=== PATIENT | female | born 1960 | race Caucasian/White ===

== ENCOUNTER → 2021-01-11 10:35 | Outpatient (CLI) | payer BC, SELFPAY ==
--- NOTE | ~2021-01-11 | MM_ITS ---
EXAMINATION: MM screening michael BI w frank HISTORY: Screening mammogram TECHNIQUE: Craniocaudal and mediolateral oblique 3-D tomosynthesis images were obtained and synthetic 2-D images were generated. CAD analysis was submitted and interpreted. COMPARISON: 06/02/2019 bilateral digital screening mammogram BREAST PARENCHYMAL COMPOSITION: The breasts are heterogeneously dense, which may obscure small masses . FINDINGS: A new 4.5 mm circumscribed mass is noted in the posterior lower inner right breast (MLO Ambrocio osynthesis image 39/60, craniocaudal Tomosynthesis image 19/50). The heterogeneously dense stroma may obscure additional masses. Diagnostic right mammogram and right breast ultrasound examination are re commended. Otherwise there is no evidence of suspicious mass, calcification, or architectural distortion to sugg est malignancy in either breast. There has been no other suspicious interval change. IMPRESSION: 1. No mammographic evidence of malignancy. 2. Recommend routine screening mammography in one year. BI-RADS Category 0: Incomplete: Needs additional imaging evaluation. Reviewed, dictated and finalized at location A.
== END ==
PROVIDERS: PCP Family Medicine; Visit Provider Obstetrics & Gynecology Gynecology
DX: Z12.31 Encounter for screening mammogram for malignant neoplasm of breast (principal); R92.8 Other abnormal and inconclusive findings on diagnostic imaging of breast
CPT/HCPCS: 77063; 77067

== ENCOUNTER → 2021-01-24 07:50 | Outpatient (CLI) | payer BC, SELFPAY ==
--- NOTE | ~2021-01-24 | MMUS_ITS ---
EXAMINATION: MM diagnostic mammo unilat RT, US breast RT limited HISTORY: Possible right breast mass on screening mammogram TECHNIQUE: Additional 3-D tomosynthesis images of the right breast were performed and synthetic 2-D i mages were generated. CAD analysis was submitted and interpreted. High resolution limited right breas t ultrasound was performed. COMPARISON: 01/11/2021, 06/02/2019, 05/29/2016 FINDINGS: MAMMOGRAPHIC FINDINGS: There is a 7 mm obscured low density mass in the posterior third of the lower inner breast at the 4:0 0 location 6 cm from the nipple. With spot compression, this appears to be stable compared to prior m ammograms. ULTRASOUND: There is a 7 mm x 4 mm oval, circumscribed, parallel, complex cystic and solid mass at the 3:30 locat ion 4 cm from the nipple with no posterior features or internal vascularity, possibly clustered micro cysts. There is a 4 mm x 3 mm oval, circumscribed, parallel, hypoechoic mass at the 4:00 location 2 c m from the nipple with no posterior features or internal vascularity. There are cysts at the 5:00 loc ation near the nipple measuring up to 3 mm. Clustered microcysts are present at the 6:00 location 3.5 cm from the nipple. IMPRESSION: 1. Probably benign masses at the 3:30 and 4:00 location of the right breast. 2. Recommend 6 month follow-up right diagnostic mammogram and ultrasound. BI-RADS category 3, probably benign findings. Reviewed, dictated and finalized at location D. IMPRESSION: 1. Probably benign masses at the 3:30 and 4:00 location of the right breast. 2. Recommend 6 month follow-up right diagnostic mammogram and ultrasound. BI-RADS category 3, probably benign findings.
== END ==
PROVIDERS: PCP Family Medicine; Visit Provider Obstetrics & Gynecology Gynecology
DX: R92.8 Other abnormal and inconclusive findings on diagnostic imaging of breast (principal)
CPT/HCPCS: 76642; 77065

== ENCOUNTER → 2021-06-08 10:23 | Outpatient (CLI) | payer BC, SELFPAY ==
--- NOTE | ~2021-06-08 | DEXA_ITS ---
Bone Density Report Name: Noa Martin Age: 60 Sex: Female Ethnicity: White Date of : 1960 Indication: postmenopausal; screening for osteoporosis; Referring Provider: JANETTE, SARAI Study: Bone densitometry was performed. Exam Date: June 08, 2021 Accession number: [id number] Bone Density: Region BMD T-score Z-score Classification AP Spine (L1-L4) 0.932 -1.0 0.4 Normal Femoral Neck (Left) 0.685 -1.5 -0.2 Osteopenia Total Hip (Left) 0.853 -0.7 0.2 Normal Femoral Neck (Right) 0.705 -1.3 0.0 Osteopenia Total Hip (Right) 0.866 -0.6 0.3 Normal Total Hip Mean 0.860 -0.7 0.3 Normal World Health Organization criteria for BMD impression classify patients as: Normal (T-score at or above -1.0), Osteopenia (T-score between -1.0 and -2.5), or Osteoporosis (T-score at or below -2.5). 10-year Fracture Risk(1): Major Osteoporotic Fracture 7.9% Hip Fracture 1.1% Reported Risk Factors: [place] (), Neck BMD=0.685, BMI=25.7, smoking (1) FRAX(R) Version 3.08. Fracture probability calculated for an untreated patient. Fracture probability may be lower if the patient has received treatment. Previous Exams: Region Exam Age BMD T-score BMD Change BMD Change Date g/cm2 vs Baseline vs Previous AP Spine(L1-L4) 06/08/2021 60 0.932 -1.0 -0.021 -0.021 06/02/2019 58 0.953 -0.9 Total Hip(Left) 06/08/2021 60 0.853 -0.7 -0.028* -0.028* 06/02/2019 58 0.881 -0.5 Total Hip(Right) 06/08/2021 60 0.866 -0.6 -0.008 -0.008 06/02/2019 58 0.874 -0.6 *Denotes significance at 95% confidence level, LSC for AP Spine = 0.022 g/cm2, LSC for Total Hip = 0.027 g/cm2 Clinical Information Provided by Patient: Smokes Has used the following medications: Vitamin D, OSTEO BI-FLEX, MTV Patient maximum height was 61.0 Menopause Age: 49 No regular weight bearing exercise Drinks caffeinated beverages Onset of menses at age 15 Number of children 2 Impression: The patient has low bone mass, based on the Left Femoral Neck T-score. The patient has an estimated ten-year risk of hip fracture of 1.1% and an estimated ten-year risk of major fracture of 7.9%, based on the WHO FRAX algorithm. The patient has risk factors, including: smoking. The BMD for the Total Hip(Left) decreased, changing by -0.028 since the last DXA exam. Discussion: BONE DENSITY IS LOW AT ONE OR MORE SKELETAL SITES. Th
== END ==
PROVIDERS: PCP Family Medicine; Visit Provider Nurse Practitioner
DX: Z78.0 Asymptomatic menopausal state (principal); M85.852 Other specified disorders of bone density and structure, left thigh; M85.851 Other specified disorders of bone density and structure, right thigh
CPT/HCPCS: 77080

== ENCOUNTER → 2021-10-08 08:45 | Outpatient (CLI) | payer BC, SELFPAY ==
--- NOTE | ~2021-10-08 | MMUS_ITS ---
EXAMINATION: MM diagnostic michael RT w frank, US breast RT limited HISTORY: Six-month follow-up of probably benign masses at 3 and 4:00 position of right breast TECHNIQUE: Additional 3-D tomosynthesis images of were performed and synthetic 2-D images were genera jaren. CAD analysis was submitted and interpreted. High resolution targeted right breast ultrasound was performed. COMPARISON: 01/24/2021 diagnostic right mammogram and limited right breast ultrasound 01/07/2021, 06/02/2019 bilateral screening mammogram examinations BREAST PARENCHYMAL COMPOSITION: The breasts are heterogeneously dense, which may obscure small masses . FINDINGS: MAMMOGRAPHIC FINDINGS: No interval suspicious mass, architectural distortion, malignant calcification, skin thickening or re traction or significant new or developing density of the right breast is evident since 06/02/2019. ULTRASOUND: 3:00 4 cm from nipple: Stable approximate 5.3 x 7.7 mm complex lesion with no internal vascularity or suspicious shadowing 4:00 2 cm from nipple: 3.7 x 2.9 x 3.5 mm circumscribed hypoechoic lesion with through transmission, no internal vascularity, not significantly changed since 01/24/2021 5:00 subareolar area: 3.4 mm sonolucency with through transmission consistent with cyst. Adjacent 2.7 mm circumscribed lesion without internal vascularity or posterior shadowing, likely benign. IMPRESSION: 1. No mammographic evidence of malignancy 2. Routine mammographic screening is recommended BI-RADS Category 2: Benign finding(s). Reviewed, dictated and finalized at location A. IMPRESSION: 1. No mammographic evidence of malignancy 2. Routine mammographic screening is recommended BI-RADS Category 2: Benign finding(s).
== END ==
PROVIDERS: PCP Family Medicine; Visit Provider Obstetrics & Gynecology Gynecology
DX: N63.14 Unspecified lump in the right breast, lower inner quadrant (principal)
CPT/HCPCS: 76642; 77061; 77065; G0279

== ENCOUNTER 2022-07-27 13:02 | Emergency (ER) | payer BC, SELFPAY ==
--- NOTE | ~2022-07-27 | XR_ITS ---
XR abdomen/kub 1V 07/27/2022 13:44 INDICATION: Hematuria TECHNIQUE: KUB COMPARISON: 06/09/2009 FINDINGS: Bowel gas pattern is normal. There is no evidence of free air, mass, organomegaly, ascites or obstruction. There are bilateral renal stones. There are pelvic phleboliths. The bones appear int act. IMPRESSION: 1: Bilateral nephrolithiasis.. Reviewed, dictated and finalized at location A. 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
[2022-07-27 13:21] VITALS: BP 167/101; PULSE 80; RESP 16; TEMP 36.8; O2SAT 99
--- NOTE | 2022-07-27 13:31 | ED.FEMALEGU ---
HPI - Female Genitourinary General Chief complaint: Abdominal Pain Stated complaint: BLOOD IN URINE/BACK PAIN/ABD CRAMPING Time Seen by Provider: 07/27/22 13:30 Source: patient and RN notes reviewed Mode of arrival: ambulatory Limitations: no limitations History of Present Illness HPI Narrative: 61-year-old female presents with concern for right flank pain, right lower abdominal pain and cramping, hematuria. Reports symptoms started early this week, she had a stressful week so she tried to ignore the symptoms. Reports they got worse on Friday. She denies dysuria, frequency, urgency, fever, aches, chills, sweats. Denies nausea, vomiting. Denies injury, trauma. Denies rash or blisters. She reports history of frequent kidney stones MD elicited complaint: flank pain Related Data Home Medications Medication Instructions Recorded Confirmed ergocalciferol (vitamin D2) 1,250 1,250 mcg PO DIRECTED 07/27/22 07/27/22 mcg (50,000 unit) capsule Allergies Allergy/AdvReac Type Severity Reaction Status Date / Time No Known Allergies Allergy Mild Unverified 07/27/22 13:50 Review of Systems Review of Systems: CONSTITUTIONAL: Denies malaise, chills, sweats, or fever. CARDIOVASCULAR: Denies chest pain, palpitations, or edema. RESPIRATORY: Denies cough or dyspnea. GASTROINTESTINAL: Reports right lower quadrant abdominal pain. Denies nausea, vomiting, diarrhea GENITOURINARY: Denies dysuria, frequency, urgency, suprapubic pressure. Reports right flank pain or hematuria. SKIN: Denies rash or itching. MUSCULOSKELETAL: Denies back pain or myalgia. All systems reviewed & are unremarkable except as noted in HPI and below PMFSH Family History Family History (Updated 03/17/14 @ 07:13 by DOCTOR UNKNOWN) Mother Hypertension Social History Social History Smoking status: Never smoker Second hand tobacco smoke exposure: No Alcohol intake: current Comments At time of signature, agree with nursing past medical, surgical, social and family history. There is no relevant family history pertinent to the presenting complaint Exam Narrative: GENERAL: Well-appearing, well-nourished, and in no acute distress. HEAD: Normocephalic. EYES: PERRLA, conjunctivae clear. NECK: Supple. No lymphadenopathy CHEST: Clear to auscultation. No respiratory distress. HEART: Regular rate and rhythm. ABDOMEN: Soft, nontender upon palpation, nondistended, normal active bowel sounds, no palpable or pulsatile masses, no guarding. Right CVA tenderness SKIN: Warm, dry, no rash. NEURO: Alert and oriented x3. PSYCH: Normal mood and affect Course Course Emergency Course: Patient has a history of kidney stones. She declines pain medicine or Zofran at this time. She was advised to not take ibuprofen until she sees urology Patient is aware of diagnosis, understands and agrees to treatment plan. Anticipatory guidance given. Patient agrees to follow-up as directed and is aware of reasons to seek care at the emergency department. Portions of this record may have been created with voice recognition software Level of Care: Express Care Visit Vital Signs Vital signs: Vital Signs Temperature 98.2 F 07/27/22 13:21 Pulse Rate 80 07/27/22 13:21 Respiratory Rate 16 07/27/22 13:21 Blood Pressure 167/101 H 07/27/22 13:21 Pulse Oximetry 99 07/27/22 13:21 Temperature 98.2 F 07/27/22 13:21 Pulse Rate 80 07/27/22 13:21 Respiratory Rate 16 07/27/22 13:21 Blood Pressure 167/101 H 07/27/22 13:21 Pulse Oximetry 99 07/27/22 13:21 Reviewed. MDM - Female Genitourinary MDM Narrative Medical decision making narrative: Exam findings and UA show no acute concerns or changes; patient is non-toxic appearing and is in no distress. Patient is appropriate for outpatient treatment and follow-up. Differential Diagnosis Differential diagnosis: Likely urinary tract infection and cystitis Imaging Data My impression: Images review
== END 2022-07-27 14:06 | disposition home or self-care (01) ==
PROVIDERS: Emergency Provider Nurse Practitioner; PCP Family Medicine
DX: N20.0 Calculus of kidney (principal); E78.00 Pure hypercholesterolemia, unspecified; K21.9 Gastro-esophageal reflux disease without esophagitis; M19.90 Unspecified osteoarthritis, unspecified site
CPT/HCPCS: 74018; 81003; 87086; 99203; G0463

== ENCOUNTER → 2022-09-30 16:00 | Outpatient (CLI) | payer BC, SELFPAY ==
--- NOTE | ~2022-09-30 | XR_ITS ---
Supine view of the abdomen Clinical history: Renal stone COMPARISON: 07/27/2022 Findings: Bowel gas pattern is nonspecific. No evidence for obstruction or free air. Small bilateral renal stones are similar to prior exam. There are 2 new calcifications in the right pelvis. Osseous s tructures are intact. Impression: Bilateral nephrolithiasis, similar to prior exam. 2 new calcifications in the right pelvis. Distal right ureteral or bladder stones are not excluded. Reviewed, dictated and finalized at location M. Impression: Bilateral nephrolithiasis, similar to prior exam. 2 new calcifications in the right pelvis. Distal right ureteral or bladder ston es are not excluded.
== END ==
PROVIDERS: PCP Family Medicine; Visit Provider Physician Assistant Medical
DX: N20.0 Calculus of kidney (principal)
CPT/HCPCS: 74018

== ENCOUNTER → 2022-11-22 10:17 | Outpatient (CLI) | payer BC, SELFPAY ==
--- NOTE | ~2022-11-22 | US_ITS ---
EXAMINATION: US renal BI DATE: 11/22/2022 10:33 INDICATION: Renal calculus TECHNIQUE: Multiple ultrasound grayscale images of the kidneys were obtained. COMPARISON: KUB dated 09/30/2022 FINDINGS: The right kidney measures 9.8 x 5.1 x 5.6 cm. The left kidney measures 9.3 x 5.5 x 5.1 cm. The kidney s demonstrate normal echogenicity. There is a 9 mm echogenic and shadowing likely renal stone at the mid right kidney. This appears to correspond to an approximately 4 mm calcification on the prior radi ographs. Of note typically overestimates the size of renal stones. There is no hydronephrosis in eith er kidney. No stones identified. The bladder is normal. IMPRESSION: 1. Stone at the mid right kidney with no hydronephrosis in either kidney. Reviewed, dictated and finalized at location B.
== END ==
PROVIDERS: PCP Family Medicine; Visit Provider Internal Medicine Nephrology
DX: N20.0 Calculus of kidney (principal)
CPT/HCPCS: 76775

== ENCOUNTER → 2023-01-07 10:32 | Outpatient (CLI) | payer BC, SELFPAY ==
--- NOTE | ~2023-01-07 | MM_ITS ---
EXAMINATION: MM screening michael BI w frank HISTORY: Screening mammogram TECHNIQUE: Craniocaudal and mediolateral oblique 3-D tomosynthesis images were obtained and synthetic 2-D images were generated. CAD analysis was submitted and interpreted. COMPARISON: 10/08/2021 Limited right breast ultrasound examination 01/07/2021, 06/02/2019 bilateral screening mammo gram examinations BREAST PARENCHYMAL COMPOSITION: The breasts are heterogeneously dense, which may obscure small masses . FINDINGS: Biopsy markers on the left; history of 2 prior benign left breast biopsies. There is no kusum dence of suspicious mass, calcification, or architectural distortion to suggest malignancy in either breast. There has been no suspicious interval change. IMPRESSION: 1. No mammographic evidence of malignancy. 2. Recommend routine screening mammography in one year. BI-RADS Category 1: Negative Reviewed, dictated and finalized at location C.
== END ==
PROVIDERS: PCP Family Medicine; Visit Provider Obstetrics & Gynecology Gynecology
DX: Z12.31 Encounter for screening mammogram for malignant neoplasm of breast (principal)
CPT/HCPCS: 77063; 77067

== ENCOUNTER 2024-03-18 13:40 | Outpatient (CLI) | payer BC, SELFPAY ==
--- NOTE | ~2024-03-18 | MM_ITS ---
EXAMINATION: MM screening michael BI w frank HISTORY: Screening TECHNIQUE: Craniocaudal and mediolateral oblique 3-D tomosynthesis images were obtained and synthetic 2-D images were generated. CAD analysis was submitted and interpreted. COMPARISON: Comparison to multiple prior studies sequentially, with oldest reviewed study dated 03/2016. BREAST PARENCHYMAL COMPOSITION: Dense: The breasts are heterogeneously dense, which may obscure small masses FINDINGS: There is no evidence of suspicious mass, calcification, or architectural distortion to sugg est malignancy in either breast. There has been no suspicious interval change. IMPRESSION: 1. No mammographic evidence of malignancy. 2. Recommend routine screening mammography in one year. BI-RADS Category 1: Negative Reviewed, dictated and finalized at location B.
--- NOTE | ~2024-03-18 | DEXA_ITS ---
Bone Density Report Name: HOANG BOWEN Age: 63 Sex: Female Ethnicity: White Date of : 1960 Indication: postmenopausal; screening for osteoporosis; Referring Provider: Bhumika Haely Study: Bone densitometry was performed. Exam Date: March 18, 2024 Accession number: [id number] Bone Density: Region BMD T-score Z-score Classification AP Spine(L1-L4) 0.939 -1.0 0.6 Normal Femoral Neck (Left) 0.702 -1.3 0.1 Osteopenia Total Hip (Left) 0.907 -0.3 0.8 Normal Femoral Neck (Right) 0.708 -1.3 0.1 Osteopenia Total Hip (Right) 0.879 -0.5 0.6 Normal Femoral Neck Mean 0.705 -1.3 0.1 Osteopenia Total Hip Mean 0.893 -0.4 0.7 Normal World Health Organization criteria for BMD impression classify patients as: Normal (T-score at or above -1.0), Osteopenia (T-score between -1.0 and -2.5), or Osteoporosis (T-score at or below -2.5). 10-year Fracture Risk(1): Major Osteoporotic Fracture 8.0% Hip Fracture 1.1% Reported Risk Factors: [place] (), Neck BMD=0.702, BMI=24.3, smoking (1) FRAX(R) Version 3.08. Fracture probability calculated for an untreated patient. Fracture probability may be lower if the patient has received treatment. Clinical Information Provided by Patient: Smokes Patient maximum height was 61 Menopause Age: 51 No regular weight bearing exercise Drinks caffeinated beverages Onset of menses at age 15 Number of children 1 Impression: The patient has low bone mass, based on the Left Femoral Neck T-score. The patient has risk factors, including: smoking. Discussion: BONE DENSITY IS LOW AT ONE OR MORE SKELETAL SITES. This patient's lowest T-score is low at one or more skeletal sites. It meets the World Health Organization's (WHO) criteria for ?low bone mass? (T-score between -1.0 and -2.5). The patient's 10-year risk of fracture as calculated by FRAX is less than the threshold where pharmacological therapy is recommended by the National Osteoporosis Foundation (NOF). However, all treatment decisions require clinical judgment and consideration of individual patient factors, including patient preferences, comorbidities, previous drug use, risk factors not captured in the FRAX model (e.g., frailty, falls, vitamin D deficiency, increased bone turnover, interval significant decline in bone density) and possible under or overestimation of fracture risk by FRAX. The patient should follow a healthful lifestyle (good nutrition with adequate calcium and vitamin D, and appropriate weight-bearing exercise). Follow-Up: Consider repeating this study in 2 to 3 years to reassess this patient's status, or sooner if there is some new clinical indication. Reported by: Dr. Panda Brown on 03/18/2024 2:00:00 PM.
== END 2024-03-18 13:41 | disposition home or self-care (01) ==
LOC: CHSIMG 13:41
PROVIDERS: PCP Family Medicine; Visit Provider Obstetrics & Gynecology Gynecology
DX: Z12.31 Encounter for screening mammogram for malignant neoplasm of breast (principal); Z78.0 Asymptomatic menopausal state; M85.89 Other specified disorders of bone density and structure, multiple sites
CPT/HCPCS: 77063; 77067; 77080

== ENCOUNTER 2025-07-06 13:30 | Outpatient (CLI) | payer BC, SELFPAY ==
--- NOTE | ~2025-07-06 | MM_ITS ---
EXAMINATION: screening [facility] BI w frank INDICATION: Asymptomatic, referred for screening mammogram COMPARISON: 01/11/2021 through 06/06/2014 TECHNIQUE: Digital Breast Tomosynthesis CC, MLO views of Both breasts were obtained with computer-aided detection to assist in interpretation of the study. FINDINGS: The breasts are extremely dense, which lowers the sensitivity of mammography. There is a group of microcalcifications in the superior medial left breast at posterior third. Elsewhere, there are no mammographic features of malignancy. IMPRESSION: 1. Left breast Incompletely characterized group of calcifications. 2. No evidence of malignancy in the Right breast. RECOMMENDATION: Left breast Diagnostic mammogram with true lateral, and appropriate magnification views. BI-RADS Category 0: Incomplete: Needs additional imaging evaluation. Reviewed, dictated and finalized at location A. BOTOMY DIRECTOR IMPRESSION: 1. Left breast Incompletely characterized group of calcifications. 2. No evidence of malignancy in the Right breast. RECOMMENDATION: Left breast Diagnostic mammogram with true lateral, and appropriate magnificati on views. BI-RADS Category 0: Incomplete: Needs additional imaging evaluation.
--- NOTE | ~2025-07-06 | CT_ITS ---
EXAMINATION:CT lung screening DATE: 07/06/2025 14:01 INDICATION: Screening TECHNIQUE: Computed tomography (CT) of the chest was performed without intravenous contrast. The dose-length product (DLP) was 56.33 mGy-cm. COMPARISON: None. FINDINGS: No suspicious lung nodules or masses. The lungs are clear. Heart size normal. Thoracic aorta mildly ectatic measuring 3.7 cm at the level of the right pulmonary artery. Trace pericardial fluid. Coronary calcifications present. Diffuse degenerative changes throughout the bones. No acute process seen in the visualized portion of the upper abdomen or extrathoracic soft tissues. IMPRESSION: 1. No suspicious lung nodules. Lung RADS 1. Correlate with follow-up low-dose lung cancer screening chest CT in 12 months. 2. Other findings as above. Reviewed, dictated and finalized at location A. IED COMMUNICATIONS ENGINEER IMPRESSION: 1. No suspicious lung nodules. Lung RADS 1. Correlate with follow-up low-dose l jessica cancer screening chest CT in 12 months. 2. Other findings as above.
--- OUTSIDE RECORDS SUMMARY | 2025-07-06 16:06 | XMS_ITS | Clinical Summary ---
Author Organization [facility] Address [facility] [place] [address] Care Team Providers Care Finishing Range Feeder Name Role Phone Madison Madera MD Primary Care Provider [phone] Social History Tobacco Use Types Packs/Day Years Used Date Smoking Tobacco: Never Assessed Comments Unknown Sex and Gender Information Value Date Recorded Sex Assigned at Not on file Legal Sex Female 7:39 PM CDT Gender Identity Not on file Sexual Orientation Not on file Plan of Treatment Health Maintenance Due Date Last Done Comments Cervical Cancer Screening Pa p Smear (Age 30 to 64) Every 3 Years 1960 Colorectal Cancer Screening Colonoscopy (10 Years) 1960 Annual Physical 1964 Hepatitis C 1979 DTaP, Tdap and Td Vaccines ( 1 - Tdap) 1980 Cervical Cancer Screening Pa p with HPV Testing (Age 30 to 64) Every 5 Years 1991 Cervical Cancer Screening with HPV 1991 Mammogram Screening 2001 Pneumococcal Vaccine: 50+ Ye ars (1 of 1 - PCV) 2011 Zoster Vaccines (1 of 2) 2011 COVID-19 Vaccine (2024-2 6 season) 2025 Influenza Adult (#1) 2025 RSV Immunization or 60+ Years (1 - 1-dose 75+ series) 2036 Hepatitis A Vaccines Aged Out No long er eligible based on patient's age to complete this topic Meningococcal B Vaccine Aged Out No l onger eligible based on patient's age to complete this topic Meningococcal Vaccine Aged Out No eugene hien eligible based on patient's age to complete this topic RSV Immunizations Under 20 Months Aged Out No longer eligible based on patient's age to complete this topic Insurance [facility] Care Teams Finishing Range Feeder Relationship Specialty Start Date End Date Madison Madera MD PCP - General FAMILY PRACTICE 06/10/19
--- OUTSIDE RECORDS SUMMARY | 2025-07-06 16:06 | XMS_ITS | Patient Health Record ---
Author Organization [facility] Address [address] [place], [place] [id number] Care Team Providers Care Engineering Mgr Name Role Phone MENG COLLINS Unavailable [phone] Madison Madera Unavailable Unavailable Allergies No Known Allergies Reason For Referral No Information Medications Medication SIG (Take, Route, Frequency, Duration) Notes Start Date End Date Status Vitamin B12 Active Vitamin D Active Biotin Active Claritin Active Plan Of Treatment No Information Insurance Providers Payer Name Payer Address Payer Phone Subscriber Number Group Number Insured Name Patient Relationship to Insured Coverage Start Date Coverage End Date [facility] ([facility]) ATTN CLAIMS [address] [place] [address] [id number] Noa [place] Self - patient is the insured Medical (General) History Medical History History ICD Code kidney stones Surgical History Surgery Date(Month/Year) section
== END 2025-07-06 13:31 | disposition home or self-care (01) ==
LOC: CHSIMG 13:34
PROVIDERS: PCP Family Medicine; Visit Provider Obstetrics & Gynecology Gynecology
DX: Z12.31 Encounter for screening mammogram for malignant neoplasm of breast (principal); Z12.2 Encounter for screening for malignant neoplasm of respiratory organs; Z87.891 Personal history of nicotine dependence; R92.8 Other abnormal and inconclusive findings on diagnostic imaging of breast
CPT/HCPCS: 71271; 77063; 77067